=== PATIENT | male | born 2000 | race Caucasian/White ===

== ENCOUNTER 2021-01-01 11:42 | Day surgery (SDC) | payer OTHER ==
[2021-01-01] MEDS ORDERED: Sodium Chloride 0.9% 1,000 ML IV STA (12:08)
[2021-01-01] MEDS ORDERED: Sodium Chloride 0.9% 10 ML Syringe FLUSH PRN (12:08)
[2021-01-01] MEDS ORDERED: Ondansetron 4 MG/2 ML SDV IVPUSH ONE (12:09)
[2021-01-01] MEDS ORDERED: HYDROmorphone 0.5 MG/0.5 ML Syringe IVPUSH ONE (12:09)
[2021-01-01] MEDS ORDERED: Diatrizoate Meglumine/Diatrizoate Sodium 37% 120 ML Bottle PO ONE (13:16)
[2021-01-01] MEDS ORDERED: Iopamidol 612 MG/ML 100 ML Bottle IVPUSH ONE (13:16)
[2021-01-01] MEDS ORDERED: Sodium Chloride 0.9% 10 ML Syringe FLUSH ONE (13:16)
--- NOTE | 2021-01-01 14:00 | CT ---
CT abdomen and pelvis Technique: Multiple axial sections were obtained from above the dome of the diaphragm inferiorly through the pubic symphysis. Intravenous and oral contrast was utilized. Delayed images were also obtained through the pelvis. Reconstructed coronal and sagittal images were obtained. Comparison: No previous study. Enlarged tubular structure is seen showing surrounding inflammatory change compatible with appendicitis. Visualized lung bases show nothing acute. Liver contains no focal abnormality. Spleen size is normal. Adrenal glands show no abnormality. Pancreas is within normal limits. Gallbladder contains no calcified gallstones. Kidneys show symmetric contrast enhancement with no hydronephrosis or mass. Abdominal aorta shows no aneurysm. No retroperitoneal adenopathy or mesenteric abnormalities are seen. No pelvic mass is otherwise identified. Delayed images show contrast within the upper right ureter. No significant contrast is seen within the bladder. Bone window settings were reviewed which appear within normal limits for the patient's age. Impression: 1. Findings as described above compatible with appendicitis. 2. No additional abnormality is seen on CT study of the abdomen and pelvis. Diagnostic code #5
[2021-01-01] MEDS ORDERED: Bupivacaine 0.5%/EPINEPHrine 1:200,000 50 ML MDV ONE (14:24)
[2021-01-01] MEDS ORDERED: Rocuronium 50 MG/5 ML Vial ONE (14:25)
[2021-01-01] MEDS ORDERED: fentaNYL 250 MCG/5 ML SDV ONE (14:25)
[2021-01-01] MEDS ORDERED: Ondansetron 4 MG/2 ML SDV ONE (14:25)
[2021-01-01] MEDS ORDERED: Propofol 200 MG/20 ML SDV ONE (14:25)
[2021-01-01] MEDS ORDERED: Midazolam 1 MG/ML 2 ML SDV ONE (14:25)
[2021-01-01] MEDS ORDERED: Lidocaine 1% 4 ML ONE (14:26)
[2021-01-01] MEDS ORDERED: Ketorolac 30 MG/ML SDV ONE (14:26)
--- NOTE | 2021-01-01 14:27 | EDM.PDOC ---
ED HPI GENERAL MEDICAL PROBLEM - General Chief Complaint: Abdominal Pain Stated Complaint: LOW ABD PAIN Time Seen by Provider: 01/01/21 11:53 Source of Information: Reports: Patient History Limitations: Reports: No Limitations - History of Present Illness INITIAL COMMENTS - FREE TEXT/NARRATIVE: The patient presents from [facility] for right lower abdominal pain. This started 2 days ago. He has a subjective fever. He had some nausea. He still has his appendix and gallbladder. He has no chills, chest pain, shortness of breath, or dysuria. He has no medical problems. He went to [facility] and he saw Tamy Lim. She ordered labs and UA. His WBC was elevated at 14.2 and his urine looked good. His exam was concerning for appendicitis. She sent him here for a CT scan. Onset: Gradual Duration: Day(s): (2) Location: Reports: Abdomen Quality: Reports: Sharp Severity: Moderate Improves with: Reports: None Worsens with: Reports: None Associated Symptoms: Reports: Fever/Chills, Nausea/Vomiting. Denies: Chest Pain, Cough, Headaches, Shortness of Breath Lower Abdominal Pain Score (Numeric/FACES): 6 - Related Data Allergies Allergy/AdvReac Type Severity Reaction Status Date / Time No Known Allergies Allergy Verified 01/01/21 11:58 Home Meds: Home Meds . [No Known Home Meds] 01/01/21 [History] Past Medical History - Past Health History Medical/Surgical History: Denies Medical/Surgical History Psychiatric History: Reports: ADHD, Anxiety, Depression Social & Family History - Tobacco Use Tobacco Use Status *Q: Never Tobacco User - Caffeine Use Caffeine Use: Reports: Coffee, Tea - Recreational Drug Use Recreational Drug Use: Yes Recreational Drug Type: Reports: Marijuana/Hashish Recreational Drug Use Frequency: Rarely ED ROS GENERAL - Review of Systems Review Of Systems: See Below Constitutional: Reports: Fever HEENT: Reports: No Symptoms Respiratory: Reports: No Symptoms Cardiovascular: Reports: No Symptoms Endocrine: Reports: No Symptoms GI/Abdominal: Reports: Abdominal Pain, Nausea. Denies: Vomiting : Reports: No Symptoms Musculoskeletal: Reports: No Symptoms ED EXAM, GI/ABD - Physical Exam Exam: See Below Exam Limited By: No Limitations General Appearance: Alert, No Apparent Distress Ears: Normal External Exam Nose: Normal Inspection Head: Atraumatic, Normocephalic Neck: Normal Inspection Respiratory/Chest: No Respiratory Distress, Lungs Clear, Normal Breath Sounds Cardiovascular: Regular Rate, Rhythm, No Edema, No Murmur GI/Abdominal Exam: Soft, No Organomegaly, No Mass, Tender (Moderate tenderness to the right lower abdomen) Back Exam: Normal Inspection Extremities: Normal Inspection Course - Vital Signs Last Recorded V/S: Last Vital Signs Temp 97.5 F 01/01/21 11:54 Pulse 89 01/01/21 13:44 Resp 16 01/01/21 13:44 BP 127/82 01/01/21 13:44 Pulse Ox 98 01/01/21 13:44 - Orders/Labs/Meds Orders: Active Orders 24 hr Category Date Time Status Patient Status [ADT] Routine ADT 01/01/21 14:08 Active Peripheral IV Care [RC] . DIRECTED Care 01/01/21 12:08 Active Sodium Chloride 0.9% [Saline Flush] Med 01/01/21 12:08 Active 10 ml FLUSH ASDIRECTED PRN ED Antiemetic Medication Reflex [OM.PC] Stat Oth 01/01/21 12:08 Ordered Peripheral IV Insertion Adult [OM.PC] Stat Oth 01/01/21 12:08 Ordered Schedule Procedure [COMM] Stat Oth 01/01/21 14:09 Ordered Medication Orders Sodium Chloride (Sodium Chloride 0.9% 10 Ml Syringe) 10 ml FLUSH ASDIRECTED PRN PRN Reason: Keep Vein Open Last Admin: 01/01/21 12:18 Dose: 10 ml Documented by: ARACELIS Labs: Laboratory Tests 01/01/21 01/01/21 Range/Units 12:20 12:25 Sodium 140 (136-145) mEq/L Potassium 3.9 (3.5-5.1) mEq/L Chloride 103 (98-107) mEq/L Carbon Dioxide 28 (21-32) mEq/L Anion Gap 12.9 (5-15) BUN 12 (7-18) mg/dL Creatinine 0.9 (0.7-1.3) mg/dL Est Cr Clr Drug Dosing 128.15 mL/min Estimated GFR (MDRD) > 60 (>60) mL/min BUN/Creatinine Ratio 13.3 L (14-18) Glucose 76 (74-106) mg/dL Calcium 9.0 (8.5-10.1) mg/dL Total Bilirubin 1.1 H (0.2-1.0) mg/dL AST 11 L (15-37) U/L ALT 19 (16-63) U/L Alkaline Phosphatase 76 (46-116) U/L Total Protein 8.4 H (6.4-8.2) g/dl Albumin 4.0 (3.4-5.0) g/dl Globulin 4.4 gm/dL Albumin/Globulin Ratio 0.9 L (1-2) Lipase 47 L (73-393) U/L SARS-CoV-2 RNA (CHANTEL) Negative (NEGATIVE) Meds: Medications Generic Name Dose Route Start Last Admin Trade Name Freq PRN Reason Stop Dose Admin Sodium Chloride 10 ml 01/01/21 12:08 01/01/21 12:18 Sodium Chloride 0.9% 10 Ml Syringe FLUSH 10 ml ASDIRECTED PRN Administration Keep Vein Open Discontinued Medications Generic Name Dose Route Start Last Admin Trade Name Freq PRN Reason Stop Dose Admin Diatrizoate Meglum/Diatrizoate Sod 90 ml 01/01/21 13:16 01/01/21 13:31 Diatrizoate Meglumine/Diatrizoate Sodium 37% 120 Ml Bottle PO 01/01/21 13:17 90 ml ONETIME ONE Administration Hydromorphone HCl 0.5 mg 01/01/21 12:09 01/01/21 12:20 Hydromorphone 0.5 Mg/0.5 Ml Syringe IVPUSH 01/01/21 12:10 0.5 mg ONETIME ONE Administration Sodium Chloride 1,000 mls @ 1,000 mls/hr 01/01/21 12:08 01/01/21 12:20 Normal Saline IV 01/01/21 13:07 1,000 mls/hr .BOLUS STA Administration Iopamidol 100 ml 01/01/21 13:16 01/01/21 13:31 Iopamidol 612 Mg/Ml 100 Ml Bottle IVPUSH 01/01/21 13:17 100 ml ONETIME ONE Administration Ondansetron HCl 4 mg 01/01/21 12:09 01/01/21 12:20 Ondansetron 4 Mg/2 Ml Sdv IVPUSH 01/01/21 12:10 4 mg ONETIME ONE Administration Sodium Chloride 10 ml 01/01/21 13:16 01/01/21 13:31 Sodium Chloride 0.9% 10 Ml Syringe FLUSH 01/01/21 13:17 10 ml ONETIME ONE Administration - Re-Assessments/Exams Free Text/Narrative Re-Assessment/Exam: 01/01/21 14:24 I ordered an IV NS 1L bolus, zofran 4mg IV, dilaudid 0.5mg IV, CMP, COVID [address] of her abdomen and pelvis with IV and oral contrast. His WBC at the clinic was 14.2. His CMP shows total bili at 1.1. His lipase was low at 47. His COVID [address] shows findings compatible with appendicitis. I called Dr Velasco and he came to see the patient. Departure - Departure Time of Disposition: 14:30 Disposition: DC/Tfer to [facility] Condition: Fair Clinical Impression: Acute appendicitis Qualifiers: Acute appendicitis type: with localized peritonitis Appendicitis gangrene presence: without gangrene Appendicitis perforation presence: without perforation Appendicitis abscess presence: without abscess Qualified Code(s): K35.30 - Acute appendicitis with localized peritonitis, without perforation or gangrene - Discharge Information Referrals: PCP,None [Primary Care Provider] - Sepsis Event Note (ED) - Evaluation Sepsis Screening Result: No Definite Risk - Focused Exam Vital Signs: Vital Signs Temp Pulse Resp BP Pulse Ox 01/01/21 13:44 89 16 127/82 98 01/01/21 11:54 97.5 F 80 18 142/92 H 98 - My Orders Last 24 Hours: My Active Orders 01/01/21 12:08 Peripheral IV Care [RC] . DIRECTED Sodium Chloride 0.9% [Saline Flush] 10 ml FLUSH ASDIRECTED PRN ED Antiemetic Medication Reflex [OM.PC] Stat Peripheral IV Insertion Adult [OM.PC] Stat - Assessment/Plan Last 24 Hours: My Active Orders 01/01/21 12:08 Peripheral IV Care [RC] . DIRECTED Sodium Chloride 0.9% [Saline Flush] 10 ml FLUSH ASDIRECTED PRN ED Antiemetic Medication Reflex [OM.PC] Stat Peripheral IV Insertion Adult [OM.PC] Stat
--- NOTE | 2021-01-01 14:39 | PCM.HP.2 ---
H&P History of Present Illness - General Date of Service: 01/01/21 Admit Problem/Dx: Admission Diagnosis/Problem Admission Diagnosis/Problem Appendicitis Source of Information: Patient History Limitations: Reports: No Limitations - History of Present Illness Initial Comments - Free Text/Narative: Mr. Rai is a 20 yo man sent to the ER from [place] with evidence of acute a ppendicitis. WBC 14,000, CT scan showing findings consistent with acute appendicitis. Pain started today in the RLQ and has gotten progressively worse. The patient is otherwise healthy and has had no prior abdominal operations. Lower Abdominal Pain Score (Numeric/FACES): 6 - Related Data Allergies/Adverse Reactions: Allergies Allergy/AdvReac Type Severity Reaction Status Date / Time No Known Allergies Allergy Verified 01/01/21 11:58 Home Medications: Home Meds . [No Known Home Meds] 01/01/21 [History] Past Medical History - Past Health History Medical/Surgical History: Denies Medical/Surgical History Psychiatric History: Reports: ADHD, Anxiety, Depression Social & Family History - Tobacco Use Tobacco Use Status *Q: Never Tobacco User - Caffeine Use Caffeine Use: Reports: Coffee, Tea - Recreational Drug Use Recreational Drug Use: Yes Recreational Drug Type: Reports: Marijuana/Hashish Recreational Drug Use Frequency: Rarely H&P Review of Systems - Review of Systems: Review Of Systems: See Below General: Reports: Malaise HEENT: Reports: No Symptoms Pulmonary: Reports: No Symptoms Cardiovascular: Reports: No Symptoms Gastrointestinal: Reports: Abdominal Pain Genitourinary: Reports: No Symptoms Musculoskeletal: Reports: No Symptoms Skin: Reports: No Symptoms Psychiatric: Reports: No Symptoms Neurological: Reports: No Symptoms Hematologic/Lymphatic: Reports: No Symptoms Immunologic: Reports: No Symptoms Exam - Exam Exam: See Below - Vital Signs Vital Signs: Last Vital Signs Temp 36.4 C 01/01/21 11:54 Pulse 89 01/01/21 13:44 Resp 16 01/01/21 13:44 BP 127/82 01/01/21 13:44 Pulse Ox 98 01/01/21 13:44 Weight: 68.629 kg - Exam General: Alert, Oriented, Other (tearful) HEENT: Conjunctiva Clear Neck: Supple Lungs: Clear to Auscultation, Normal Respiratory Effort Cardiovascular: Regular Rate, Regular Rhythm GI/Abdominal Exam: Other (RLQ tenderness) Extremities: Normal Inspection Skin: Warm, Dry Neuro Extensive - Mental Status: Alert, Oriented x3 Psychiatric: Alert - Patient Data Lab Results Last 24 hrs: Laboratory Results - last 24 hr 01/01/21 01/01/21 Range/Units 12:20 12:25 Sodium 140 (136-145) mEq/L Potassium 3.9 (3.5-5.1) mEq/L Chloride 103 (98-107) mEq/L Carbon Dioxide 28 (21-32) mEq/L Anion Gap 12.9 (5-15) BUN 12 (7-18) mg/dL Creatinine 0.9 (0.7-1.3) mg/dL Est Cr Clr Drug Dosing 128.15 mL/min Estimated GFR (MDRD) > 60 (>60) mL/min BUN/Creatinine Ratio 13.3 L (14-18) Glucose 76 (74-106) mg/dL Calcium 9.0 (8.5-10.1) mg/dL Total Bilirubin 1.1 H (0.2-1.0) mg/dL AST 11 L (15-37) U/L ALT 19 (16-63) U/L Alkaline Phosphatase 76 (46-116) U/L Total Protein 8.4 H (6.4-8.2) g/dl Albumin 4.0 (3.4-5.0) g/dl Globulin 4.4 gm/dL Albumin/Globulin Ratio 0.9 L (1-2) Lipase 47 L (73-393) U/L SARS-CoV-2 RNA (CHANTEL) Negative (NEGATIVE) Result Diagrams: 01/01/21 12:20 Sepsis Event Note - Evaluation Sepsis Screening Result: No Definite Risk - Focused Exam Vital Signs: Vital Signs Temp Pulse Resp BP Pulse Ox 01/01/21 13:44 89 16 127/82 98 01/01/21 11:54 36.4 C 80 18 142/92 H 98 Problem List Initiated/Reviewed/Updated: Yes Orders Last 24hrs: Active Orders 24 hr Category Date Time Status Patient Status [ADT] Routine ADT 01/01/21 14:08 Active Peripheral IV Care [RC] . DIRECTED Care 01/01/21 12:08 Active Sodium Chloride 0.9% [Saline Flush] Med 01/01/21 12:08 Active 10 ml FLUSH ASDIRECTED PRN cefOXitin [Mefoxin in Dextrose,Iso-Osm 2 GM/50 ML] 2 gm Med 01/01/21 14:34 Ordered Premix Bag 1 bag IV ONETIME ED Antiemetic Medication Reflex [OM.PC] Stat Oth 01/01/21 12:08 Ordered Peripheral IV Insertion Adult [OM.PC] Stat Oth 01/01/21 12:08 Ordered Schedule Procedure [COMM] Stat Oth 01/01/21 14:09 Ordered Medication Orders Sodium Chloride (Sodium Chloride 0.9% 10 Ml Syringe) 10 ml FLUSH ASDIRECTED PRN PRN Reason: Keep Vein Open Last Admin: 01/01/21 12:18 Dose: 10 ml Documented by: ARACELIS Assessment/Plan Comment:: Acute appendicitis. Plan for laparoscopic appendectomy. - Mortality Measure Prognosis:: Good
[2021-01-01] MEDS ORDERED: cefOXitin 2 GM in Premix Bag 1 BAG IV ONE (15:00)
--- NOTE | 2021-01-01 16:08 | PCM.PRNOTE ---
- Free Text/Narrative Note: Date: 01/01/2021 Operation: laparoscopic appendectomy Indication: acute appendicitis Surgeon: Ashish Velasco MD Findings: uncomplicated acute appendicitis. Large appendix. Detailed Report: The patient was taken to the operating room and placed on the table in supine position. Timeout was performed and general endotracheal anesthesia was initiated. The left arm was tucked at the patient's side, abdominal hair was clipped, and the abdomen was prepped and draped in usual sterile fashion. A Veress needle was inserted at the left upper quadrant to establish pneumoperitoneum. Air was aspirated just inferior to the umbilicus with a needle and syringe. A 12 mm bladed trocar was inserted at this site. A 5 mm 30 degree laparoscope was inserted into the abdomen and contents inspected. There was an acute inflammatory reaction going on in the right lower quadrant. The Veress insertion site was inspected and there was no inadvertent injury on Veress placement. The needle was removed. Additional 5 mm ports were placed under laparoscopic visualization, one at the suprapubic region in the midline, and 1 in the left lower quadrant. The patient was positioned in Trendelenburg and rotated towards the surgeon standing on the patient's left side. The appendix was readily visible. Thin omentum was adherent to the appendix. This was dissected off bluntly. The appendix was grasped and retracted anteriorly and inferiorly, putting tension on the mesoappendix. A window was developed at the base of the appendix through the mesoappendix using the [place] LigaSure. The mesoappendix was divided using the LigaSure. 2 loads of a 30 mm laparoscopic powered stapler, white loads, were used to divide the appendix flush with the cecum. The appendix was placed in Endo Catch and removed through the infraumbilical port. The dissection field was suctioned dry, and there was some greenish-yellow clear fluid in the pelvis that was suctioned. The 12 mm port was removed, and 0 Vicryl was used to close fascia at this site using a laparoscopic suture passer. The 5 mm ports were removed under laparoscopic visualization and pneumoperitoneum was released. All incisions were closed at the level of skin with 4-0 Vicryl suture and dressed with Dermabond. The patient tolerated the procedure well.
[2021-01-01] MEDS ORDERED: Lactated Ringers 1,000 ML ONE (16:11)
--- NOTE | 2021-01-01 16:19 | PCM.POSTAN ---
POST ANESTHESIA ASSESSMENT - MENTAL STATUS Mental Status: Alert, Oriented - VITAL SIGNS Vital Signs: Last Vital Signs Temp 37.0 C 01/01/21 16:13 Pulse 71 01/01/21 16:13 Resp 15 01/01/21 16:13 BP 119/82 01/01/21 16:13 Pulse Ox 96 01/01/21 16:13 - RESPIRATORY Respiratory Status: Respiratory Rate WNL, Airway Patent, O2 Saturation Stable - CARDIOVASCULAR CV Status: Pulse Rate WNL, Blood Pressure Stable - GASTROINTESTINAL GI Status: No Symptoms - PAIN Pain Score: 0 - POST OP HYDRATION Hydration Status: Adequate & Stable - OBSERVATIONS Free Text/Narrative:: no anesthesia complications noted
[2021-01-01] MEDS ORDERED: fentaNYL 100 MCG/2 ML SDV IVPUSH PRN (16:21)
--- NOTE | 2021-01-01 16:21 | PCM.PREANE ---
Preanesthetic Assessment - Procedure Proposed Procedure: lap appy - Anesthesia/Transfusion/Family Hx Anesthesia History: No Prior Anesthesia Family History of Anesthesia Reaction: No Transfusion History: No Prior Transfusion(s) - Review of Systems General: Fatigue Pulmonary: No Symptoms Cardiovascular: No Symptoms Gastrointestinal: Abdominal Pain, Nausea Neurological: No Symptoms Other: Reports: None - Physical Assessment NPO Status Date: 12/31/20 NPO Status Time: 22:00 Vital Signs: Last Vital Signs Temp 37.0 C 01/01/21 16:13 Pulse 71 01/01/21 16:13 Resp 15 01/01/21 16:13 BP 119/82 01/01/21 16:13 Pulse Ox 96 01/01/21 16:13 Height: 1.83 m Weight: 68.629 kg ASA Class: 1E Mental Status: Alert & Oriented x3 Airway Class: Mallampati = 1 Dentition: Reports: Normal Dentition Thyro-Mental Finger Breadths: 3 Mouth Opening Finger Breadths: 3 ROM/Head Extension: Full Lungs: Clear to Auscultation, Normal Respiratory Effort Cardiovascular: Regular Rate, Regular Rhythm - Lab Values: Laboratory Last Values Sodium 140 mEq/L (136-145) 01/01/21 12:20 Potassium 3.9 mEq/L (3.5-5.1) 01/01/21 12:20 Chloride 103 mEq/L (98-107) 01/01/21 12:20 Carbon Dioxide 28 mEq/L (21-32) 01/01/21 12:20 Anion Gap 12.9 (5-15) 01/01/21 12:20 BUN 12 mg/dL (7-18) 01/01/21 12:20 Creatinine 0.9 mg/dL (0.7-1.3) 01/01/21 12:20 Est Cr Clr Drug Dosing 128.15 mL/min 01/01/21 12:20 Estimated GFR (MDRD) > 60 mL/min (>60) 01/01/21 12:20 BUN/Creatinine Ratio 13.3 (14-18) L 01/01/21 12:20 Glucose 76 mg/dL (74-106) 01/01/21 12:20 Calcium 9.0 mg/dL (8.5-10.1) 01/01/21 12:20 Total Bilirubin 1.1 mg/dL (0.2-1.0) H 01/01/21 12:20 AST 11 U/L (15-37) L 01/01/21 12:20 ALT 19 U/L (16-63) 01/01/21 12:20 Alkaline Phosphatase 76 U/L (46-116) 01/01/21 12:20 Total Protein 8.4 g/dl (6.4-8.2) H 01/01/21 12:20 Albumin 4.0 g/dl (3.4-5.0) 01/01/21 12:20 Globulin 4.4 gm/dL 01/01/21 12:20 Albumin/Globulin Ratio 0.9 (1-2) L 01/01/21 12:20 Lipase 47 U/L (73-393) L 01/01/21 12:20 SARS-CoV-2 RNA (CHANTEL) Negative (NEGATIVE) 01/01/21 12:25 - Allergies Allergies/Adverse Reactions: Allergies Allergy/AdvReac Type Severity Reaction Status Date / Time No Known Allergies Allergy Verified 01/01/21 11:58 - Blood Blood Available: No Product(s) Available: None - Anesthesia Plan Pre-Op Medication Ordered: None - Acknowledgements Anesthesia Type Planned: General Anesthesia Pt an Appropriate Candidate for the Planned Anesthesia: Yes Alternatives and Risks of Anesthesia Discussed w Pt/Guardian: Yes Pt/Guardian Understands and Agrees with Anesthesia Plan: Yes PreAnesthesia Questionnaire - Past Health History Medical/Surgical History: Denies Medical/Surgical History Psychiatric History: Reports: ADHD, Anxiety, Depression - SUBSTANCE USE Tobacco Use Status *Q: Never Tobacco User Tobacco Use Within Last Twelve Months: No Second Hand Smoke Exposure: No Days Per Week of Alcohol Use: 0 Number of Drinks Per Day: 0 Total Drinks Per Week: 0 Recreational Drug Use History: Yes Recreational Drug Type: Reports: Marijuana/Hashish - HOME MEDS Home Medications: Home Meds oxyCODONE 5 mg PO Q4H PRN #15 tab 01/01/21 [Rx] - CURRENT (IN HOUSE) MEDS Current Meds: Current Medications Sodium Chloride (Sodium Chloride 0.9% 10 Ml Syringe) 10 ml FLUSH ASDIRECTED PRN PRN Reason: Keep Vein Open Stop: 01/01/21 23:00 Last Admin: 01/01/21 12:18 Dose: 10 ml Documented by: Discontinued Medications Bupivacaine HCl/Epinephrine Bitart (Bupivacaine 0.5%/Epinephrine 1:200,000 50 Ml Mdv) Confirm Administered Dose 50 ml .ROUTE .STK-MED ONE Stop: 01/01/21 14:25 Last Admin: 01/01/21 15:30 Dose: 20 ml Documented by: Diatrizoate Meglum/Diatrizoate Sod (Diatrizoate Meglumine/Diatrizoate Sodium 37% 120 Ml Bottle) 90 ml PO ONETIME ONE Stop: 01/01/21 13:17 Last Admin: 01/01/21 13:31 Dose: 90 ml Documented by: Fentanyl (Fentanyl 250 Mcg/5 Ml Sdv) Confirm Administered Dose 250 mcg .ROUTE .STK-MED ONE Stop: 01/01/21 14:26 Glycopyrrolate (Glycopyrrolate 0.2 Mg/Ml 2 Ml Syringe) Confirm Administered Dose 0.4 mg .ROUTE .STK-MED ONE Stop: 01/01/21 15:53 Hydromorphone HCl (Hydromorphone 0.5 Mg/0.5 Ml Syringe) 0.5 mg IVPUSH ONETIME ONE Stop: 01/01/21 12:10 Last Admin: 01/01/21 12:20 Dose: 0.5 mg Documented by: Sodium Chloride (Normal Saline) 1,000 mls @ 1,000 mls/hr IV .BOLUS STA Stop: 01/01/21 13:07 Last Admin: 01/01/21 12:20 Dose: 1,000 mls/hr Documented by: Lidocaine HCl (Xylocaine-Mpf 1%) Confirm Administered Dose 4 mls @ as directed .ROUTE .STK-MED ONE Stop: 01/01/21 14:27 Cefoxitin Sodium 2 gm/ Premix 50 mls @ 100 mls/hr IV ONETIME ONE Stop: 01/01/21 15:29 Cefoxitin Sodium (Mefoxin In Dextrose,Iso-Osm 2 Gm/50 Ml) Confirm Administered Dose 50 mls @ as directed .ROUTE .STK-MED ONE Stop: 01/01/21 15:20 Lactated Ringer's (Ringers, Lactated) Confirm Administered Dose 1,000 mls @ as directed .ROUTE .STK-MED ONE Stop: 01/01/21 16:12 Iopamidol (Iopamidol 612 Mg/Ml 100 Ml Bottle) 100 ml IVPUSH ONETIME ONE Stop: 01/01/21 13:17 Last Admin: 01/01/21 13:31 Dose: 100 ml Documented by: Ketorolac Tromethamine (Ketorolac 30 Mg/Ml Sdv) Confirm Administered Dose 30 mg .ROUTE .STK-MED ONE Stop: 01/01/21 14:27 Midazolam HCl (Midazolam 1 Mg/Ml 2 Ml Sdv) Confirm Administered Dose 2 mg .ROUTE .STK-MED ONE Stop: 01/01/21 14:26 Neostigmine Methylsulfate (Neostigmine Methylsulfate 5 Mg/5 Ml Syringe) Confirm Administered Dose 5 mg .ROUTE .STK-MED ONE Stop: 01/01/21 15:53 Ondansetron HCl (Ondansetron 4 Mg/2 Ml Sdv) 4 mg IVPUSH ONETIME ONE Stop: 01/01/21 12:10 Last Admin: 01/01/21 12:20 Dose: 4 mg Documented by: Ondansetron HCl (Ondansetron 4 Mg/2 Ml Sdv) Confirm Administered Dose 4 mg .ROUTE .STK-MED ONE Stop: 01/01/21 14:26 Propofol (Propofol 200 Mg/20 Ml Sdv) Confirm Administered Dose 200 mg .ROUTE .STK-MED ONE Stop: 01/01/21 14:26 Rocuronium [place] (Rocuronium 50 Mg/5 Ml Vial) Confirm Administered Dose 50 mg .ROUTE .STK-MED ONE Stop: 01/01/21 14:26 Sodium Chloride (Sodium Chloride 0.9% 10 Ml Syringe) 10 ml FLUSH ONETIME ONE Stop: 01/01/21 13:17 Last Admin: 01/01/21 13:31 Dose: 10 ml Documented by:
--- NOTE | 2021-01-01 18:04 | PCM48HPAN ---
Post Anesthesia Note - EVALUATION WITHIN 48HRS OF ANESTHETIC Vital Signs in Normal Range: Yes Patient Participated in Evaluation: Yes Respiratory Function Stable: Yes Airway Patent: Yes Cardiovascular Function Stable: Yes Hydration Status Stable: Yes Pain Control Satisfactory: Yes Nausea and Vomiting Control Satisfactory: Yes Mental Status Recovered: Yes Vital Signs: Last Vital Signs Temp 36.9 C 01/01/21 17:00 Pulse 61 01/01/21 17:00 Resp 14 01/01/21 17:00 BP 109/69 01/01/21 17:00 Pulse Ox 98 01/01/21 17:00
[2021-01-01 19:46] VITALS: BP 127/81; PULSE 74
== END 2021-01-01 20:20 | disposition home or self-care (01) ==
LOC: JD.ED 11:42 → JD.SDS 14:22 → JD.MS 17:46 → JD.SDS 20:20
PROVIDERS: ATTEND Surgery
DX: K35.80 Unspecified acute appendicitis (principal); Z01.812 Encounter for preprocedural laboratory examination; Z20.822 Contact with and (suspected) exposure to COVID-19
CPT/HCPCS: 36415; 44970; 74177; 80053; 83690; 87635; 96374; 96375; 99285; J0694; J1170; J1885; J2250; J2405; J2704; J2710; J3010; J3490; J7030; J7120; Q9963; Q9967; 00840; 99140; 99203; 99284; U0002

== ENCOUNTER 2021-07-18 21:54 | Emergency (ER) | payer OTHER ==
[2021-07-18 22:13] VITALS: BP 152/103; PULSE 90
[2021-07-18] MEDS ORDERED: Alum Hydrox/Mag Hydrox/Simeth 30 ML, Lidocaine 2% 15 ML PO ONE ×2 (22:13)
--- NOTE | 2021-07-18 22:21 | EDM.PDOC ---
ED HPI GENERAL MEDICAL PROBLEM - General Chief Complaint: Chest Pain Stated Complaint: CHEST PAIN Time Seen by Provider: 07/18/21 22:09 Source of Information: Reports: Patient, Family, RN Notes Reviewed History Limitations: Reports: No Limitations - History of Present Illness INITIAL COMMENTS - FREE TEXT/NARRATIVE: Patient is a 21-year-old male presenting to the emergency department with complaints of intense, intermittent low midsternal chest pain. He describes it as a tight "grabbing" sensation which comes and goes. When symptoms are occurring, pain is quite intense and lasts approximately 1 minute and then subsides. He took Tums at home with little relief. Reports some epigastric discomfort as well. Denies any chronic medical conditions. Denies significant shortness of breath, nausea, vomiting, cough. Denies a known history of GERD. Chest Pain Score (Numeric/FACES): 6 - Related Data Allergies Allergy/AdvReac Type Severity Reaction Status Date / Time No Known Allergies Allergy Verified 07/18/21 22:13 Home Meds: Home Meds FLUoxetine [PROzac] 20 mg PO DAILY 07/18/21 [History] Past Medical History - Past Health History Medical/Surgical History: Denies Medical/Surgical History Psychiatric History: Reports: ADHD, Anxiety, Depression Social & Family History - Caffeine Use Caffeine Use: Reports: Coffee, Tea ED ROS GENERAL - Review of Systems Review Of Systems: See Below Constitutional: Reports: No Symptoms HEENT: Reports: No Symptoms Respiratory: Reports: No Symptoms. Denies: Shortness of Breath Cardiovascular: Reports: Chest Pain. Denies: Dyspnea on Exertion, Palpitations, Syncope Endocrine: Reports: No Symptoms GI/Abdominal: Reports: Abdominal Pain (mild epigastric) : Reports: No Symptoms Musculoskeletal: Reports: No Symptoms Skin: Reports: No Symptoms Neurological: Reports: No Symptoms Psychiatric: Reports: No Symptoms Hematologic/Lymphatic: Reports: No Symptoms Immunologic: Reports: No Symptoms ED EXAM, GENERAL - Physical Exam Exam: See Below Exam Limited By: No Limitations General Appearance: Alert, Anxious Respiratory/Chest: No Respiratory Distress, Lungs Clear, Normal Breath Sounds, No Accessory Muscle Use, Chest Non-Tender Cardiovascular: Normal Peripheral Pulses, Regular Rate, Rhythm, No Edema, No Gallop, No JVD, No Murmur, No Rub GI/Abdominal: Normal Bowel Sounds, Soft, No Organomegaly, No Distention, No Abnormal Bruit, No Mass, Tender (Epigastric tenderness) Neurological: Alert, Oriented, CN II-XII Intact, Normal Cognition, Normal Gait, Normal Reflexes, No Motor/Sensory Deficits Psychiatric: Normal Affect, Anxious Skin Exam: Warm, Dry, Intact, Normal Color, No Rash #1 Interpretation EKG Date: 07/18/21 Time: 22:22 Rhythm: NSR Rate (Beats/Min): 76 [place]: Normal P-Wave: Present QRS: Normal ST-T: Normal QT: Normal Course - Vital Signs Last Recorded V/S: Last Vital Signs Temp 98.3 F 07/18/21 22:04 Pulse 90 07/18/21 22:04 Resp 20 07/18/21 22:04 BP 152/103 H 07/18/21 22:04 Pulse Ox 99 07/18/21 22:04 - Orders/Labs/Meds Meds: Medications Discontinued Medications Generic Name Dose Route Start Last Admin Trade Name Freq PRN Reason Stop Dose Admin Al Hydroxide/Mg Hydroxide 30 0 ml 07/18/21 22:13 07/18/21 22:19 ml/ Lidocaine HCl 15 ml PO 07/18/21 22:14 45 ml ONETIME ONE Administration Famotidine 40 mg 07/18/21 22:57 Famotidine 40 Mg/5 Ml Bottle PO 07/18/21 22:58 ONETIME ONE - Re-Assessments/Exams Free Text/Narrative Re-Assessment/Exam: Patient is a 21-year-old male presenting to the emergency department with complaints of intermittent, intense low midsternal chest discomfort. Reports that it waxes and wanes. Describes it as an intense grabbing sensation. He has no chronic medical conditions or cardiac history. On exam, patient has tenderness through the epigastrium. Given his description of symptoms and epigastric tenderness, presentation is suspicious for esophageal spasms. I have ordered EKG as well as GI cocktail. 07/18/21 22:57 Symptoms have resolved after the GI cocktail. On further investigation with patient, he was eating flaming hot Cheetos earlier in the evening. EKG shows no evidence of acute ischemia. Patient will be given Pepcid 40 mg on discharge. Recommend taking Pepcid twice daily for 10 days. If ongoing symptoms, follow-up in the clinic. Discharge instructions as document. Departure - Departure Time of Disposition: 22:57 Disposition: Home, Self-Care 01 Condition: Good Clinical Impression: Gastroesophageal reflux disease Qualifiers: Esophagitis presence: esophagitis presence not specified Qualified Code(s): K21.9 - Gastro-esophageal reflux disease without esophagitis - Discharge Information *PRESCRIPTION DRUG MONITORING PROGRAM REVIEWED*: No *COPY OF PRESCRIPTION DRUG MONITORING REPORT IN PATIENT ALLYSSA: No Instructions: Gastroesophageal Reflux Disease, Adult, [id number] Referrals: PCP,None [Primary Care Provider] - Forms: ED Department Discharge Additional Instructions: Take Pepcid (famotadine) 20 mg twice daily for 10 days starting tomorrow. This may be purchased [id number]. Avoid spicy, greasy, or acidic foods. If you continue to have symptoms after conclusion of treatment, follow-up in the clinic. Return to ER as needed. Sepsis Event Note (ED) - Evaluation Sepsis Screening Result: No Definite Risk
[2021-07-18] MEDS ORDERED: Famotidine 40 MG/5 ML Bottle PO ONE (22:57)
== END 2021-07-18 23:05 | disposition home or self-care (01) ==
LOC: JD.ED 21:54
DX: K21.9 Gastro-esophageal reflux disease without esophagitis (principal)
CPT/HCPCS: 93005; 99284; A9270

== ENCOUNTER 2025-04-11 18:11 | Emergency (ER) | payer OTHER ==
[2025-04-11 19:46] LABS: MEAN PLATELET VOLUME 9.1 fl (9.4-12.4); NRBC ABSOLUTE 0.00 (0.00-0.02); NRBC PERCENT 0.0 % (0.0-0.2); PLATELET COUNT,PLT 328 K/mm3 (150-400); RED BLOOD CELL COUNT 5.66 M/mm3 (4.52-5.90); WHITE BLOOD CELL COUNT,WBC 6.47 K/mm3 (3.9-11.3)
[2025-04-11 20:04] LABS: BUPRENORPHINE SCREEN,URINE NEGATIVE (CUTOFF=10); METHADONE SCREEN, URINE NEGATIVE (CUT0FF=200); METHAMPHETAMINES SCREEN, URINE NEGATIVE (CUTOFF=500); OXYCODONE SCREEN,URINE NEGATIVE (CUT0FF=100); THC SCREEN,URINE 20 NG/ML NEGATIVE (CUTOFF=50)
[2025-04-11 20:05] LABS: AMPHETAMINES SCREEN, URINE NEGATIVE (CUTOFF=500)
[2025-04-11 20:08] LABS: A/G RATIO 1.1 (1-2); ALANINE AMINOTRANSFERASE,ALT 25.0 U/L (16-63); ASPARTATE AMNIOTRANSFERASE,AST 11.0 U/L (15-37); BILIRUBIN TOTAL 1.1 mg/dL (0.2-1.0); BLOOD UREA NITROGEN,BUN 10.0 mg/dL (7-18); CHLORIDE,CL 103.0 mEq/L (98-107); CREATININE 0.8 mg/dL (0.7-1.3); EST CRCL DRUG DOSING (CG) 146.31 mL/min; ESTIMATED GFR 128.0 mL/min (>60); GLUCOSE RANDOM 84.0 mg/dL (70-99); POTASSIUM,K 4.0 mEq/L (3.5-5.1); PROTEIN TOTAL,TP 7.9 g/dl (6.4-8.2); SODIUM,NA 140.0 mEq/L (136-145); TSH 0.685 uIU/mL (0.358-3.74)
[2025-04-11 20:10] LABS: BAND PERCENT MAN 0 % (0-10); BASOPHILS PERCENT MAN 0 (0.2-1.2); EOSINOPHILS PERCENT MAN 6 % (0.8-7.0); LYMPHOCYTES % ATYPICAL MANUAL 0 %; LYMPHOCYTES PERCENT MAN 38 % (20-40); MONOCYTES PERCENT MAN 4 % (2-10); PLATELET COUNT ESTIMATE ADEQUATE
[2025-04-11 20:15] LABS: CARBON DIOXIDE,CO2 30.0 mEq/L (21-32)
[2025-04-11 20:24] LABS: ETHANOL BLOOD MEDICAL 0.0 gm% (0.00)
[2025-04-11] MEDS: buPROPion 150 MG Tab.ER PO ONE (20:33)
[2025-04-11] MEDS: Ondansetron 4 MG/2 ML SDV IVPUSH ONE (20:35)
[2025-04-12 14:42] VITALS: BP 108/79; PULSE 81
== END 2025-04-12 13:45 ==
LOC: JD.ED 18:11
DX: F32.A Depression, unspecified (principal); Z90.49 Acquired absence of other specified parts of digestive tract; Z79.899 Other long term (current) drug therapy
CPT/HCPCS: 36415; 80053; 80143; 80179; 80306; 80307; 84443; 85007; 85027; 93005; 99285; A9270

== ENCOUNTER 2025-06-28 11:15 | Emergency (ER) | payer OTHER, MEDICAID ==
[2025-06-28] MEDS ORDERED: Phenylephrine 1% 10 MG/ML SDV IM ONE (12:02)
[2025-06-28 12:45] LABS: BASE EXCESS ARTERIAL -7.9 (-2-2.0); BICARBONATE,ARTERIAL 23.1 meq/L (22.0-26.0); O2 SATURATION ARTERIAL 44.8 % (96.0-97.0); PCO2 ARTERIAL 68.0 mmHg (35.0-45.0); PO2 ARTERIAL 31.0 mmHg (80.0-100.0)
[2025-06-28 15:00] VITALS: BP 125/95; PULSE 69
== END 2025-06-28 14:00 | disposition home or self-care (01) ==
LOC: JD.ED 11:15
DX: N48.30 Priapism, unspecified (principal); Z90.49 Acquired absence of other specified parts of digestive tract
CPT/HCPCS: 36600; 54235; 82803; 99284; J2371; 54220

== ENCOUNTER 2025-07-17 11:08 | Emergency (ER) | payer OTHER, MEDICAID ==
[2025-07-17] MEDS: Phenylephrine 1% 10 MG/ML SDV IM ONE ×2 (13:59→14:01)
[2025-07-17] MEDS: Phenylephrine 1% 10 MG/ML SDV ONE (14:00)
[2025-07-17 16:32] VITALS: BP 125/86; PULSE 72
== END 2025-07-17 15:25 | disposition home or self-care (01) ==
LOC: JD.ED 11:08
DX: N48.33 Priapism, drug-induced (principal); Z79.899 Other long term (current) drug therapy
CPT/HCPCS: 54235; 96372; 99283; J2371; 54220; 99284